=== PATIENT | male | born 1960 | race American Indian/Alaskan Native ===

== ENCOUNTER 2021-09-28 08:56 | Emergency (ER) | payer MEDICAID ==
[2021-09-28] MEDS ORDERED: levETIRAcetam 1000 MG/NS 0.75% 1,000 MG/100 ML BAG IV ONE (09:00)
--- NOTE | 2021-09-28 09:03 | Emergency Department Report ---
HPI - General Time Seen by Provider: 09/28/21 08:59 - HPI HPI: Room 23 The patient 60-year-old male presenting with a chief complaint of new onset seizures. Patient is a resident at care home reportedly had 2 seizures there. EMS was called and arrived on scene states that the patient was alert and oriented. Upon arrival to the ED the patient had another generalized tonic- clonic seizure and is currently postictal at the time of this interview. Patient has a history of previous CVA but no history of previous seizures ED Past Medical Hx - Past Medical History Hx CVA: Yes - Surgical History Past Surgical History?: No - Family History Family history: no significant - Social History Smoking Status: Heavy Tobacco Smoker - Medications Home Medications: Home Medications Medication Instructions Recorded Confirmed Last Taken Type Amiodarone [Cordarone 200 MG TAB] 200 mg FEEDTUBE DAILY 02/27/21 02/27/21 Unknown History Aspirin [Vazalore] 81 mg FEEDTUBE DAILY 02/27/21 02/27/21 Unknown History AtorvaSTATin [Lipitor] 20 mg FEEDTUBE QHS 02/27/21 02/27/21 Unknown History Folic Acid [Folvite] 1 mg FEEDTUBE DAILY 02/27/21 02/27/21 Unknown History Lactose-Reduced Food/Fiber [Jevity 237 ml FEEDTUBE Q4HR 02/27/21 02/27/21 Unknown History 1.2 Brad Liquid] Terazosin HCl 1 mg FEEDTUBE QHS 02/27/21 02/27/21 Unknown History Thiamine [Vitamin B-1] 100 mg FEEDTUBE DAILY 02/27/21 02/27/21 Unknown History Ticagrelor [Brilinta] 90 mg FEEDTUBE BID 02/27/21 02/27/21 Unknown History bisacodyL [Dulcolax suppos] 10 mg RC DAILY PRN 02/27/21 02/27/21 Unknown History carvediloL [Coreg] 12.5 mg FEEDTUBE BID 02/27/21 02/27/21 Unknown History cephALEXin [Keflex] 500 mg PO Q8HR #20 cap 02/27/21 Unknown Rx cloNIDine 0.1 mg FEEDTUBE TID 02/27/21 02/27/21 Unknown History polyethylene glycoL 3350 [Miralax 17 gm FEEDTUBE QDAY 02/27/21 02/27/21 Unknown History 3350] Acetaminophen [Acetaminophen TAB] 650 mg PO Q4H PRN tablet 03/06/21 Unknown Rx Aspirin EC [Halfprin EC] 81 mg PO QDAY tablet 03/06/21 Unknown Rx AtorvaSTATin [Lipitor] 40 mg PO QHS tablet 03/06/21 Unknown Rx Famotidine [Pepcid] 20 mg PO BID tablet 03/06/21 Unknown Rx Lipase/Protease/Amylase [Pancreaze 1 each FEEDTUBE PRN PRN capsule 03/06/21 Unknown Rx 10,500 Unit] Metoprolol [Lopressor TAB] 25 mg PO BID tablet 03/06/21 Unknown Rx Prazosin 0.5 mg PO QHS capsule 03/06/21 Unknown Rx Sennosides Tab [Senokot] 8.6 mg PO Q12H PRN tablet 03/06/21 Unknown Rx Simple Syrup 15 ml FEEDTUBE PRN PRN oral.liqd 03/06/21 Unknown Rx Simple Syrup 30 ml FEEDTUBE PRN PRN oral.liqd 03/06/21 Unknown Rx Sodium Bicarbonate 325 mg FEEDTUBE PRN PRN tablet 03/06/21 Unknown Rx Thiamine [Vitamin B-1] 100 mg PO QDAY tablet 03/06/21 Unknown Rx Ticagrelor [Brilinta] 90 mg PO BID tablet 03/06/21 Unknown Rx amLODIPine 10 mg PO QDAY tablet 03/06/21 Unknown Rx bisacodyL [Dulcolax suppos] 10 mg ID QDAY PRN supp.rect 03/06/21 Unknown Rx levETIRAcetam [Keppra TAB] 500 mg PO BID #90 tablet 09/28/21 Unknown Rx ED Review of Systems ROS: Stated complaint: POSSIBLE SEIZURE Other details as noted in HPI Comment: Unobtainable due to pts medical conditions Physical Exam - Physical Exam Physical Exam: GENERAL: The patient is well-developed well-nourished male lying on stretcher currently postictal. [] HEENT: Normocephalic. Atraumatic. Patient has moist mucous membranes. NECK: Supple. Trachea midline CHEST/LUNGS: Clear to auscultation. There is no respiratory distress noted. HEART/CARDIOVASCULAR: Regular. There is no tachycardia. There is no gallop rub or murmur. ABDOMEN: Abdomen is soft, nontender. Patient has normal bowel sounds. There is no abdominal distention. SKIN: There is no rash. There is no edema. There is no diaphoresis. NEURO: The patient is currently postictal and unresponsive. MUSCULOSKELETAL: There is no evidence of acute injury. ED Course - Reevaluation(s) Reevaluation #1: 09/28/21 11:30 Patient now awake and makes eye contact. Patient does not answer questions. Per care home community center coordinator this is the patient's baseline - Consultations Consultation #1: 09/28/21 11:29 Case discussed with care home community center coordinator-patient appears to be back at his mental baseline ED Medical Decision Making - Lab Data Result diagrams: 09/28/21 Unknown 09/28/21 Unknown Laboratory Tests 09/28/21 09/28/21 09/28/21 Unknown Unknown Unknown WBC 13.3 H RBC 3.30 L Hgb 9.9 L Hct 29.2 L MCV 88 MCH 30 MCHC 34 RDW 17.4 H Plt Count 426 Lymph % (Auto) 8.2 L [place] % (Auto) 4.2 Eos % (Auto) 0.5 Baso % (Auto) 0.6 Lymph # (Auto) 1.1 L [place] # (Auto) 0.6 Eos # (Auto) 0.1 Baso # (Auto) 0.1 Seg Neutrophils % 86.5 H Seg Neutrophils # 11.5 H Sodium 139 Potassium 4.3 Chloride 101.8 Carbon Dioxide 23 Anion Gap 19 BUN 13 Creatinine 0.8 Estimated GFR > 60 BUN/Creatinine Ratio 16 Glucose 126 H Calcium 9.1 Magnesium 2.00 Urine Opiates Screen Negative Urine Methadone Screen Negative Ur Barbiturates Screen Negative Ur Phencyclidine Scrn Negative Ur Amphetamines Screen Negative U Benzodiazepines Scrn Negative Urine Cocaine Screen Negative U Marijuana (THC) Screen Negative - EKG Data -: EKG Interpreted by Al EKG shows normal: sinus rhythm, axis Rate: normal - EKG Data When compared to previous EKG there are: no significant change - Radiology Data Radiology results: report reviewed (CT head), image reviewed (CT head) [facility] [address] [place] [address] Cat Scan Report Signed Patient: JERMAINE LOCKETT MR#: [id number] 9 : 1960 Acct:[id number] Age/Sex: 60 / M ADM Date: 09/28/21 Loc: ED Attending Dr: Chase mukherjee Physician: JOAQUIN BOYCE MD Date of Service: 09/28/21 Procedure(s): CT head/brain wo con Accession Number(s): [id number] cc: JOAQUIN BOYCE MD CT BRAIN: 09/28/2021 INDICATION / CLINICAL INFORMATION: New onset seizures. COMPARISON: CT brain 02/28/2021 FINDINGS: BRAIN/INTRACRANIAL STRUCTURES: Unenhanced CT images of the brain were obtained and compared to the prior exam from 02/28/2021. Again seen is the large area of ischemic encephalomalacia in the distribution of the left middle cerebral artery. Underlying Wallerian degeneration and diffuse cerebral atrophy is present, also unchanged. There is no evidence of acute abnormality. There is no evidence of hemorrhage or mass. There are no abnormal extra-axial fluid collections. EXTRACRANIAL STRUCTURES: Unremarkable. IMPRESSION: No acute abnormality. Stable chronic left MCA ischemic encephalomalacia. All CT scans at this location are performed using dose reduction to ALARA by means of automated exposure control. Signer Name: Pedro Ayala MD Signed: 09/28/2021 9:43 AM Workstation Name: [id number] Transcribed By: PABLO Dictated By: Pedro Ayala MD Electronically Authenticated By: Pedro Ayala MD Signed Date/Time: 09/28/21942 DD/ 9 TD/TT: - Differential Diagnosis New onset seizures, ICH, electrolyte abnormality Critical care attestation.: If time is entered above; I have spent that time in minutes in the direct care of this critically ill patient, excluding procedure time. ED Disposition Clinical Impression: Seizure Disposition: [facility] HOME [facility]ILITY Is pt being admited?: No Does the pt Need Aspirin: No Condition: Stable Instructions: Seizure, Adult Additional Instructions: Return to the emergency department should you develop worsening symptoms, inability to tolerate food or liquids, high fever or any other concerns Prescriptions: levETIRAcetam [Keppra TAB] 500 mg PO BID #90 tablet Referrals: STEVEN ISSA MD [Staff Physician] - [facility] (Dr. Issa is a neurologist. Please follow-up with him for further evaluation) Time of Disposition: 11:31
[2021-09-28 09:38] LABS: Basophils # (Auto) 0.1 K/mm3 (0.0-0.1); Basophils % (Auto) 0.6 % (0.0-1.8); Eosinophils # (Auto) 0.1 K/mm3 (0.0-0.4); Eosinophils % (Auto) 0.5 % (0.0-4.3); Hematocrit 29.2 % (35.5-45.6); Hemoglobin 9.9 gm/dl (11.8-15.2); Lymphocytes # (Auto) 1.1 K/mm3 (1.2-5.4); Lymphocytes % (Auto) 8.2 % (13.4-35.0); Mean Corpuscular HGB Conc 34 % (32-34); Mean Corpuscular Volume 88 fl (84-94); Monocytes # (Auto) 0.6 K/mm3 (0.0-0.8); Monocytes % (Auto) 4.2 % (0.0-7.3); Platelet Count 426 K/mm3 (140-440); Red Cell Distribution Width 17.4 % (13.2-15.2)
--- NOTE | 2021-09-28 09:47 | Cat Scan Report ---
CT BRAIN: 09/28/2021 INDICATION / CLINICAL INFORMATION: New onset seizures. COMPARISON: CT brain 02/28/2021 FINDINGS: BRAIN/INTRACRANIAL STRUCTURES: Unenhanced CT images of the brain were obtained and compared to the pr ior exam from 02/28/2021. Again seen is the large area of ischemic encephalomalacia in the distribution of the left middle cere bral artery. Underlying Wallerian degeneration and diffuse cerebral atrophy is present, also unchange d. There is no evidence of acute abnormality. There is no evidence of hemorrhage or mass. There are no a bnormal extra-axial fluid collections. EXTRACRANIAL STRUCTURES: Unremarkable. IMPRESSION: No acute abnormality. Stable chronic left MCA ischemic encephalomalacia. All CT scans at this location are performed using dose reduction to ALARA by means of automated expos ure control. Signer Name: Pedro Ayala MD Signed: 09/28/2021 9:43 AM Workstation Name: [id number][id number]
[2021-09-28 09:56] LABS: BUN/Creatinine Ratio 16; Blood Urea Nitrogen 13 mg/dL (9-20); Calcium 9.1 mg/dL (8.4-10.2); Hemolysis Index 38
[2021-09-28 10:38] LABS: Amphetamine Screen,Urine Negative; Benzodiazepines Screen,Urine Negative; Cannabinoid Screen,Urine Negative; Cocaine Screen,Urine Negative; Methadone Screen,Urine Negative; Opiate Screen,Urine Negative
[2021-09-28 14:40] VITALS: BP 159/98
--- NOTE | 2021-09-30 18:09 | Electrocardiograph Report ---
[facility] Test Date: 2021-09-28 Test Time: 10:06:35 Pat Name: JERMAINE OLCKETT Department: Room: Gender: M Route Delivery Manager: MAGNOLIA : 1960 Requested By: JOAQUIN BOYCE Order Number: [id number] Reading MD: Chuck Cassidy Measurements Intervals [place] Rate: 74 P: 45 FL: 196 QRS: 1 QRSD: 109 T: 209 QT: 428 QTc: 475 Interpretive Statements Sinus rhythm Probable left atrial enlargement LVH with secondary repolarization abnormality Compared to ECG 03/03/2021 15:07:37 Q waves no longer present Electronically Signed On 09-30-2021 18:09:06 EDT by Chuck Cassidy
== END 2021-09-28 16:49 ==
LOC: ED 08:56
DX: R56.9 Unspecified convulsions (principal); Z86.73 Personal history of transient ischemic attack (TIA), and cerebral infarction without residual deficits; F17.200 Nicotine dependence, unspecified, uncomplicated; Z79.899 Other long term (current) drug therapy
CPT/HCPCS: 36415; 70450; 80048; 80307; 82962; 83735; 85025; 93005; 96374; 99284; J1953